=== PATIENT | male | born 1985 | race Caucasian/White ===

== ENCOUNTER 2016-09-05 15:31 | Emergency (ER) | payer SELFPAY ==
[2016-09-05] MEDS ORDERED: NORMAL SALINE 1000 ML 1,000 ML IV ONE (15:55)
--- NOTE | 2016-09-05 16:04 | ER Document Report ---
ED Cardiac - General Mode of Arrival: Medic Information source: Patient, Emergency Med Personnel - [facility] Patient complains to provider of: Chest pain Associated symptoms: Other - See above <STEVENSON PAK - Last Filed: 09/05/16 16:11> <JORDYN FERRIS - Last Filed: 09/05/16 23:03> - General Chief Complaint: Chest Pain Stated Complaint: chest pain Time Seen by Provider: 09/05/16 15:48 Notes: Patient is a 31 year old male, with a past medical history including SVT, who presents to the emergency department via EMS complaining of chest pain. Per EMS , patient had been in and out all day and was inside on the phone when he became dizzy, short of breath, with chest pain and raised heart rate and called EMS. EMS report patient's heart rate was at 190 and brought down to 90 with Adenosine. Patient states that the chest pain is starting to come back located in his left chest and radiates down his left arm which he also complains feels hot. Patient denies any new or strenuous physical activity recently. 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 Patient is not on any regular medications. (STEVENSON PAK) This 31-year-old male patient comes to the emergency room by EMS after an episode of SVT with EMS reporting a heart rate of 190 that responded to adenosine 6 mg then 12 mg. The patient stated he had been having dizziness and left-sided chest pain going down the arm causing his left fingers to feel numb and tingly. In the emergency room, patient's reports she still has that left- sided chest pain and numbness to the fingers. Exam shows the left anterior chest wall and pectoralis muscle to be very tender to palpate. 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 EKG at this time is entirely normal. (JORDYN FERRIS) - Related Data Allergies/Adverse Reactions: Sulfa (Sulfonamide Antibiotics) Allergy (Unknown, Verified 04/30/11 17:03) Past Medical History - General Information source: Patient - Social History Smoking Status: Current Every Day Smoker Cigarette use (# per day): Yes - 1/2 ppd Chew tobacco use (# tins/day): No Frequency of alcohol use: None Drug Abuse: None Family History: Reviewed & Not Pertinent Skin Medical History: Reports Hx MRSA Infectious Medical History: Reports: Hx MRSA - Immunizations Hx Diphtheria, Pertussis, Tetanus Vaccination: Yes - 2008 <STEVENSON PAK - Last Filed: 09/05/16 16:11> Review of Systems - Review of Systems Constitutional: No symptoms reported EENT: No symptoms reported Cardiovascular: See HPI, Chest pain, Heart racing, Dizziness Respiratory: See HPI, Short of breath Gastrointestinal: No symptoms reported Genitourinary: No symptoms reported Male Genitourinary: No symptoms reported Musculoskeletal: No symptoms reported Skin: No symptoms reported Hematologic/Lymphatic: No symptoms reported Neurological/Psychological: No symptoms reported -: Yes All other systems reviewed and negative <STEVENSON PAK - Last Filed: 09/05/16 16:11> Physical Exam - Vital signs Interpretation: Normal - General General appearance: Appears well, Alert - HEENT Head: Normocephalic, Atraumatic - Respiratory Respiratory status: No respiratory distress Chest status: Tender - Left anterior chest wall and pectoralus muscles are equisitely tender to palpation Breath sounds: Normal Chest palpation: Normal - Cardiovascular Rhythm: Regular Heart sounds: Normal auscultation Murmur: No - Extremities General upper extremity: Normal inspection General lower extremity: Normal inspection - Neurological Neuro grossly intact: Yes Cognition: Normal Orientation: AAOx4 [place] Coma Scale Eye Opening: Spontaneous [place] Coma Scale Verbal: Oriented [place] Coma Scale Motor: Obeys Commands [place] Coma Scale Total: 15 Speech: Normal - Psychological Associated symptoms: Normal affect, Normal mood - Skin Skin Temperature: Warm Skin Moisture: Dry Skin Color: Normal <STEVENSON PAK - Last Filed: 09/05/16 16:11> Course - Laboratory Result Diagrams: 09/05/16 16:00 09/05/16 16:00 <STEVENSON PAK - Last Filed: 09/05/16 16:11> - Laboratory Result Diagrams: 09/05/16 16:00 09/05/16 16:00 - EKG Interpretation by Me EKG shows normal: Sinus rhythm, [place], Intervals, QRS Complexes, ST-T Waves Rate: Normal - 85 Rhythm: NSR <JORDYN FERRIS - Last Filed: 09/05/16 23:03> - Re-evaluation Re-evalutation: 09/05/16 16:37 Patient stated he has been off methadone for year, however his UDS is positive for methadone. (JORDYN FERRIS) - Vital Signs Vital signs: Temp Pulse Resp BP Pulse Ox 13 121/74 97 09/05/16 16:01 09/05/16 16:01 09/05/16 16:01 - Laboratory Laboratory results interpreted by me: 09/05/16 16:00 WBC 13.2 H Discharge <PASHASTEVENSON - Last Filed: 09/05/16 16:11> <JORDYN FERRIS - Last Filed: 09/05/16 23:03> - Discharge Clinical Impression: Supraventricular tachycardia, Left-sided chest wall pain Condition: Stable Disposition: HOME, SELF-CARE Additional Instructions: Palpitations (Irregular/Rapid Heartrate) Paroxysmal Atrial Tachycardia (PAT): This abnormally rapid heartbeat is caused by a "short circuit" in the electrical system of the heart. It is not dangerous, unless other heart disease is present. These attacks of PAT may occur occasionally for years. Medication is available for treatment. Chest Wall Pain: Your chest pain has been diagnosed as coming from the chest wall. This is often caused by straining the muscles or joints in the chest during physical activity, direct trauma, coughing, or vigorous vomiting. Occasionally, no cause can be found. Rest from strenuous physical activity. This kind of chest pain is usually made worse by movement of the chest. Depending on the symptoms, we may recommend anti-inflammatory medicine for pain. If the pain is new, and seems to be due to muscle strain, cold packs can help. Otherwise, apply gentle warmth to the painful area for 15 minutes every hour or two. You should contact the doctor immediately if things change. Further evaluation is needed if you develop a fever or cough, if the nature of the pain changes, or if you become short of breath. GET PLENTY OF REST. DRINK PLENTY OF FLUIDS. AVOID CAFFEINE OR STIMULANTS. TAKE MOTRIN OR ALEVE FOR CHEST WALL MUSCLE PAIN. FOLLOW UP WITH A LOCAL MEDICAL DOCTOR IF NOT IMPROVING. RETURN TO THE EMERGENCY ROOM IF ANY NEW OR WORSENING SYMPTOMS. Scribe Attestation: 09/05/16 16:51 I personally performed the services described in the documentation, reviewed and edited the documentation which was dictated to the scribe in my presence, and it accurately records my words and actions. (JORDYN FERRIS) Scribe Documentation - Scribe Written by Scribe:: marin Olivera, 09/05/16, 1611 acting as scribe for :: Lilly <STEVENSON PAK - Last Filed: 09/05/16 16:11>
--- NOTE | 2016-09-05 16:08 | RADIOLOGY REPORT (SQ) ---
EXAM DESCRIPTION: CHEST SINGLE VIEW COMPLETED DATE/TIME: 09/05/2016 3:59 pm REASON FOR STUDY: bed 4 cp COMPARISON: 04/11/2010. EXAM PARAMETERS: NUMBER OF VIEWS: One view. TECHNIQUE: Single frontal radiographic view of the chest acquired. RADIATION DOSE: NA LIMITATIONS: None. FINDINGS: LUNGS AND PLEURA: No opacities, masses or pneumothorax. No pleural effusion. MEDIASTINUM AND HILAR STRUCTURES: No masses. Contour normal. HEART AND VASCULAR STRUCTURES: Heart normal in size. Normal vasculature. BONES: No acute findings. HARDWARE: None in the chest. OTHER: No other significant finding. IMPRESSION: NO ACUTE RADIOGRAPHIC FINDING IN THE CHEST. TECHNICAL DOCUMENTATION: JOB ID: [id number]
[2016-09-05 16:16] LABS: APPEARANCE,URINE CLEAR; BILIRUBIN,URINE NEGATIVE (NEGATIVE); GLUCOSE, URINE NEGATIVE (NEGATIVE); KETONES,URINE NEGATIVE (NEGATIVE); LEUKOCYTE ESTERASE,URINE NEGATIVE (NEGATIVE); NITRITE,URINE NEGATIVE (NEGATIVE); PROTEIN,URINE NEGATIVE (NEGATIVE); URINE SPECIFIC GRAVITY 1.008; UROBILINOGEN,URINE NEGATIVE mg/dL (<2.0)
[2016-09-05 16:18] LABS: ABSOLUTE EOSINOPHILS # (AUTO) 0.6 10^3/uL (0.0-0.6); ABSOLUTE LYMPHOCYTES (AUTO) 4.3 10^3/uL (0.5-4.7); ABSOLUTE MONOCYTES (AUTO) 0.9 10^3/uL (0.1-1.4); ABSOLUTE NEUT (AUTO) 7.3 10^3/uL (1.7-8.2); BASOPHILS % (AUTO) 0.3 % (0-2); EOSINOPHILS % (AUTO) 4.3 % (0-6); HEMATOCRIT 43.2 % (37.9-51.0); HEMOGLOBIN 14.6 g/dL (13.5-17.0); HGB HCT DIFFERENCE 0.6; LYMPHOCYTES % (AUTO) 32.9 % (13-45); MEAN CORPUSCULAR HEMOGLOBIN 30.8 pg (27.0-33.4); MEAN CORPUSCULAR HGB CONC 33.9 g/dL (32.0-36.0); MEAN CORPUSCULAR VOLUME 91 fl (80-97); MONOCYTES % (AUTO) 6.9 % (3-13); RED BLOOD COUNT 4.76 10^6/uL (4.35-5.55); RED CELL DISTRIBUTION WIDTH 12.6 % (11.5-14.0); SEGMENTED NEUTROPHILS % (AUTO) 55.6 % (42-78); WHITE BLOOD COUNT 13.2 10^3/uL (4.0-10.5)
[2016-09-05 16:25] LABS: ALANINE AMINOTRANSFERASE 34 U/L (21-72); ALBUMIN 3.9 g/dL (3.5-5.0); ALKALINE PHOSPHATASE 99 U/L (38-126); ANION GAP 9 (5-19); ASPARTATE AMINO TRANSFERASE 19 U/L (17-59); BILIRUBIN,DIRECT 0.3 mg/dL (0.0-0.4); BILIRUBIN,TOTAL 0.3 mg/dL (0.2-1.3); BLOOD UREA NITROGEN 13 mg/dL (7-20); CALCIUM 8.9 mg/dL (8.4-10.2); CARBON DIOXIDE 25 mmol/L (22-30); CHLORIDE 106 mmol/L (98-107); CREATININE RESULT 0.86 mg/dL (0.52-1.25); GLUCOSE 80 mg/dL (75-110); POTASSIUM 4.2 mmol/L (3.6-5.0); SODIUM 139.8 mmol/L (137-145); TOTAL PROTEIN 6.6 g/dL (6.3-8.2)
[2016-09-05 16:34] LABS: URINE BARBITURATES SCREEN NEGATIVE; URINE METHADONE SCREEN UNCONFIRMED POSITIVE; URINE OPIATES LOW NEGATIVE; URINE PHENCYCLIDINE SCREEN NEGATIVE
[2016-09-05 17:01] VITALS: BP 121/74
--- NOTE | 2016-09-05 21:09 | EKG REPORT ---
SEVERITY:- NORMAL ECG - SINUS RHYTHM : Confirmed by: Jose Blanc MD 05-Sep-2016 21:08:52
== END 2016-09-05 17:06 | disposition home or self-care (01) ==
LOC: ER 15:31
DX: I47.1 Supraventricular tachycardia (principal); R07.89 Other chest pain; F17.210 Nicotine dependence, cigarettes, uncomplicated
CPT/HCPCS: 93005; 99285; 96360; 36415; 84443; 85025; 80053; 81001; 80307; 71010; 93010; J7030

== ENCOUNTER 2018-10-14 20:27 | Emergency (ER) | payer SELFPAY ==
[2018-10-14] MEDS ORDERED: HYDROMORPHONE HCL INJ/PF 2 MG/ML AMPULE IV ONE ×2 (21:08→23:48)
--- NOTE | 2018-10-14 21:09 | ER Document Report ---
ED General - General Chief Complaint: Laceration Stated Complaint: LACERATION Time Seen by Provider: 10/14/18 21:06 Notes: 33-year-old male presents with left index finger pain laceration vertically along the finger after chainsaw injury. [id number]. 2 hours ago. Unknown tetanus. There was some foreign material which is been debrided. Coming to severe pain and can feel the tip of his finger. TRAVEL OUTSIDE OF THE [place] IN LAST 30 DAYS: No - Related Data Allergies/Adverse Reactions: Sulfa (Sulfonamide Antibiotics) Allergy (Unknown, Verified 04/30/11 17:03) Past Medical History - Social History Smoking Status: Former Smoker Chew tobacco use (# tins/day): No Frequency of alcohol use: None Drug Abuse: None Family History: Reviewed & Not Pertinent Patient has suicidal ideation: Yes - states some SI in last 2 weeks Patient has homicidal ideation: No - Past Medical History Cardiac Medical History: Reports: Hx Hypertension Endocrine Medical History: Denies: Hx Diabetes Mellitus Type 1, Hx Diabetes Mellitus Type 2 Renal/ Medical History: Denies: Hx Peritoneal Dialysis Skin Medical History: Reports Hx MRSA Infectious Medical History: Reports: Hx MRSA - Immunizations Hx Diphtheria, Pertussis, Tetanus Vaccination: Yes - 2008 Review of Systems - Review of Systems Notes: REVIEW OF SYSTEMS GEN: Denies fever, chills, weight loss ENT: Denies sore throat, nasal discharge, ear pain EYES: Denies blurry vision, eye pain, discharge CV: Denies chest pain, palpitations, edema RESP: Denies cough, shortness of breath, wheezing GI: Denies abdominal pain, nausea, vomiting, diarrhea MSK: Pain SKIN: Denies rash, skin lesions LYMPH: Denies swollen glands/lymph nodes NEURO: Denies headache, focal weakness or numbness, dizziness PSYCH: Denies depression, suicidal or homicidal ideation PHYSICAL EXAMINATION General: No acute distress, well-nourished Head: Atraumatic, normocephalic ENT: Mouth normal, oropharynx moist, no exudates or tonsillar enlargement Eyes: Conjunctiva normal, pupils equal, lids normal Neck: No JVD, supple, no guarding CVS: Normal rate, regular rhythm, no murmurs Resp: No resp distress, equal and normal breath sounds bilaterally GI: Nondistended, soft, no tenderness to palpation, no rebound or guarding Ext: Longitudinal laceration from the middle phalangeal segment over the PIP joint down the proximal phalangeal segment to just proximal to the MCP joint. There is about 2 mm of longitudinal tissue loss. Cannot see tendons or joints. Range of motion is intact although with pain. No visible foreign material. Good cap refill. Back: No CVA or midline TTP Skin: No rash, warm Lymphatic: No lymphadeopathy noted Neuro: Awake, alert. Face symmetric. GCS 15. Sensation in the finger. Physical Exam - Vital signs Vitals: Temp 98.0 F 10/14/18 20:38 Course - Vital Signs Vital signs: Temp Pulse Resp BP Pulse Ox 98.0 F 10/14/18 20:38 Discharge - Discharge Clinical Impression: Contact with chainsaw as cause of accidental injury Laceration of left index finger Qualifiers: Encounter type: initial encounter Damage to nail status: without damage Foreign body presence: without foreign body Qualified Code(s): S61.211A - Laceration without foreign body of left index finger without damage to nail, initial encounter Condition: Good Disposition: HOME, SELF-CARE Instructions: Antibiotic Ointment Protection ([facility]), Laceration Care ([facility]), Soap Cleansing ([facility]), Oral Narcotic Medication ([facility]) Prescriptions: Cephalexin Monohydrate [Keflex 500 mg Capsule] 500 mg PO Q6H 5 Days capsule Oxycodone HCl/Acetaminophen [Percocet 5-325 mg Tablet] 1 - 2 tab PO Q4H PRN #15 tablet PRN Reason: Referrals: MANJULA ALAMO MD [ACTIVE STAFF] - Follow up in 3-5 days
[2018-10-14] MEDS ORDERED: CEPHALEXIN 500 MG CAPSULE PO ONE (21:10)
[2018-10-14] MEDS ORDERED: LIDOCAINE 1% INJ (10 MG/ML) 10 ML MDV INJ ONE (21:23)
[2018-10-14] MEDS ORDERED: LIDOCAINE 1% INJ-PF (10 MG/ML) 30 ML SDV ONE (21:24)
--- NOTE | 2018-10-14 21:33 | RADIOLOGY REPORT (SQ) ---
EXAM DESCRIPTION: XR HAND 3 OR MORE VIEWS COMPLETED DATE/TME: 10/14/2018 00:00 CLINICAL HISTORY: 33 years, Male, bone tenderness COMPARISON: None. NUMBER OF VIEWS: Three TECHNIQUE: Frontal, lateral, and oblique radiographs of the left hand were obtained. LIMITATIONS: None. FINDINGS: Visualized osseous structures are normal in appearance. Joint spaces are well-maintained. No acute fracture or dislocation is evident. IMPRESSION: No acute osseous anomaly. copyright 2010 [employer]- All Rights Reserved
[2018-10-15] MEDS ORDERED: CEFAZOLIN 2 GM/D5W RTU 2 GM/50 ML RTUPB IV PRN (00:19)
[2018-10-15] MEDS ORDERED: CEFAZOLIN 1 GM/D5W RTU 2 GM/100 ML RTUPB IV ONE (01:12)
[2018-10-15 01:36] VITALS: BP 138/87
== END 2018-10-15 02:00 | disposition short-term general hospital (02) ==
LOC: ER 20:27
DX: S61.211A Laceration without foreign body of left index finger without damage to nail, initial encounter (principal); R20.0 Anesthesia of skin; W29.3XXA Contact with powered garden and outdoor hand tools and machinery, initial encounter; Z87.891 Personal history of nicotine dependence; I10 Essential (primary) hypertension
CPT/HCPCS: 73130; J3490; J1170; J0690; 96365; 96375; 96376; 99285